=== PATIENT | female | born 1995 | race Caucasian/White ===

== ENCOUNTER 2018-02-06 14:33 | Emergency (ER) | payer OTHER ==
[~2018-02-06] VITALS: Ht 170.2 cm; Wt 131.5 kg
[2018-02-06 14:37] VITALS: BP 134/83
[2018-02-06] MEDS ORDERED: MEDROL4 M2 PO (14:53)
[2018-02-06] MEDS ORDERED: VICODIN 5-3001 EACH PO (14:53)
[2018-02-06] MEDS ORDERED: MOBIC15 M1 PO (14:53)
--- NOTE | 2018-02-06 14:55 | ED NECK/BACK PAIN COMPLAINT ---
History of Present Illness General Chief Complaint: Low Back Pain/Injury Stated Complaint: LOW BACK PAIN THAT SHOOTS DOWN LEFT LEG Source: patient Exam Limitations: no limitations Vital Signs & Intake/Output Vital Signs & Intake/Output Vital Signs Date Time Temp Pulse Resp B/P B/P Pulse O2 O2 Flow FiO2 Mean Ox Delivery Rate 02/06 1437 97.8 82 18 134/83 98 Room Air Room Air ED Intake and Output 02/07 0000 02/06 1200 Intake Total Output Total Balance Patient 290 lb Weight Weight Reported by Patient Measurement Method Allergies Coded Allergies: NO KNOWN ALLERGIES (10/05/12) Reconcile Medications Hydrocodone/Acetaminophen (Vicodin 5-300 MG Tablet) 5 MG-300 MG TABLET 1 TAB PO BID PRN PAIN Meloxicam (Mobic) 15 MG TABLET 1 TAB PO DAILY PRN PAIN Methylprednisolone. (Medrol) 4 MG TAB.DS.PK 1 DP PO AD INFLAMMATION 6 on day 1 then reduce by one tablet daily until gone Triage Note: TRIAGE: 22 Y/O FEMALE PRESENTS C/O PAIN IN LOWER BACK/ BUTTOCKS REGION RADIATING DOWN LEFT LEG. DENIES NUMBNESS - REPORTS LSIGHT TINGLING WITH SITTING STILL. REPORTS TWO MONTHS PRIOR HAD PAIN TO LOWER BACK. Triage Nurses Notes Reviewed? yes Onset: Gradual Duration: waxing and waning Timing: recent history Location: paraspinous muscles Radiation: buttocks, upper legs Method of Injury: unknown : No Patient currently breastfeeds: No HPI: Patient is a 22-year-old female who since emergency room with concerns of a two- month history of intermittent left-sided back pain with radiation of pain down her left gluteal region and left upper leg region. Patient denies any mechanism injury or trauma. Patient states that approximately 2 months ago after lifting heavy objects the pain began however has been coming and going made worse with lumbar spine movements. She states that yesterday pain was worsened with no change in physical activity or trauma she was seen at another emergency room was given Valium and ibuprofen with no relief of symptoms. Patient denies any fever chills dysuria hematuria abdominal pain nausea vomiting saddle paresthesia bowel or bladder incontinence or lower extremity swelling weakness or paresthesia. Mom states that her sister has significant back issues as required surgical intervention and she is 22 (Marin Kaur) Past History Travel History Traveled to [place] past 21 day No Medical History Any Pertinent Medical History? none Neurological: NONE EENT: NONE Cardiovascular: NONE Respiratory: NONE Gastrointestinal: NONE Hepatic: NONE Renal: NONE Musculoskeletal: NONE Psychiatric: NONE Endocrine: NONE Blood Disorders: NONE Cancer(s): NONE [employer]ING [employer]ANT [employer]PERATOR/Reproductive: NONE Tetanus Vaccine: 06/04/14 Surgical History Surgical History: non-contributory Psychosocial History What is your primary language Congolese Tobacco Use: Never used ETOH Use: occasional use Illicit Drug Use: denies illicit drug use Family History Hx Contributory? No (Marin Kaur) Review of Systems Review of Systems Constitutional: Reports: no symptoms. Eyes: Reports: no symptoms. Ears, Nose, Throat, Mouth: Reports: no symptoms. Respiratory: Reports: no symptoms. Cardiovascular: Reports: no symptoms. Gastrointestinal/Abdominal: Reports: see HPI. Denies: abdominal pain, nausea, vomiting. Musculoskeletal: Reports: see HPI. Skin: Reports: no symptoms. Neurological/Psychological: Reports: see HPI. All Other Systems: Reviewed and Negative (Marin Kaur) Physical Exam Physical Exam General Appearance: no apparent distress, obese Head: atraumatic Eyes: Bilateral: normal appearance. Ears, Nose, Throat, Mouth: moist mucous membrane Neck: normal inspection Respiratory: no respiratory distress Gastrointestinal: soft, non-tender Extremities: non-tender Straight Leg Raising: Left: Pain at ____ degrees (60). Neurologic/Psych: no motor/sensory deficits, awake, alert, oriented x 3, normal gait, normal mood/affect Skin: intact, normal color, warm/dry Comments: Bilateral lower extremity myotomes dermatomes DTRs intact Core Measures CVA/TIA Diagnosis: No (Marin Kaur) Progress Differential Diagnosis: aortic dissection, C spine injury, carotid dissection, cauda equina syn, herniated disc, myofascial strain, pyelo/UTI, sciatica, spinal cord inj, thoracic outlet syn, T/L spine injury, ureterolithiasis Plan of Care: Patient currently is in no apparent distress resting comfortably no signs of kidney stone nontender abdomen is reproducible pain upon straight leg raise AND due to history of present illness and exam finds patient has suspecting lumbar radiculopathy\sciatica. No concern for cauda equina discitis or lumbar abscess. Patient was neurovascularly intact to lower extremities (Marin Kaur) Departure Departure Disposition: HOME OR SELF CARE Condition: Stable Clinical Impression Primary Impression: Lumbar radiculopathy Secondary Impressions: Sciatica Referrals: Amos GONCALVES,Ilir Gonsales (PCP/Family) Additional Instructions: As discussed begin icing the area directly 20 minutes every 2 hours Discontinue the previously prescribed Motrin and begin the prescription of meloxicam. Begin the prescription of Medrol Dosepak for inflammation and Vicodin for breakthrough pain relief. If symptoms worsen or if you develop any new concerning symptom return to emergency room. Follow-up with her primary care doctor next week for recheck of symptoms and possible physical therapy or MRI referral prescriptions waiting at [facility] [place] Departure Forms: Customer Survey General Discharge Information Prescriptions: Current Visit Scripts Meloxicam (Mobic) 1 TAB PO DAILY PRN PAIN #10 TAB Methylprednisolone. (Medrol) 1 DP PO AD #1 DP 6 on day 1 then reduce by one tablet daily until gone Hydrocodone/Acetaminophen (Vicodin 5-300 MG Tablet) 1 TAB PO BID PRN PAIN #6 TAB (Marin Kaur) PA/METAL WORKER Co-Sign Statement Statement: ED Attending supervision documentation- [] I saw and evaluated the patient. I have also reviewed all the pertinent lab results and diagnostic results. I agree with the findings and the plan of care as documented in the PA's/METAL WORKER's documentation. [x] I have reviewed the ED Record and agree with the PA's/METAL WORKER's documentation. [] Additions or exceptions (if any) to the PAs/METAL WORKER's note and plan are summarized below: [] (Kevin GONCALVES,[facility])
== END 2018-02-06 14:59 ==
LOC: ERH 14:33
DX: M54.16 Radiculopathy, lumbar region (principal); M54.42 Lumbago with sciatica, left side